=== PATIENT | male | born 1980 | race Caucasian/White ===

== ENCOUNTER 2017-09-08 23:03 | Inpatient (IN) | payer MEDICAID ==
[2017-09-08] MEDS ORDERED: Sodium Chloride 0.9% 1,000 ML IV ONE (23:23)
[2017-09-08] MEDS ORDERED: cefTRIAXone 1 GM in Sodium Chloride 0.9% 50 ML IV ONE (23:24)
--- NOTE | 2017-09-08 23:30 | ED Physician Chart ---
ED Chief Complaint/HPI - Patient Information Date Seen:: 09/08/17 Time Seen:: 23:00 Chief Complaint:: Leg Pain History of Present Illness:: onset x one week of intermittent bilateral leg pain, redness, and swelling; pt denies trauma, H/As, neck pain, C/P, SOB, Abd. Pain, A/N/V/D/C, fever, chills, or urinary s/s Allergies:: Allergies Allergy/AdvReac Type Severity Reaction Status Date / Time No Known Allergies Allergy Verified 09/08/17 23:19 Historian:: Patient, Family Member Review:: Nurse's Note Reviewed, Old Chart Reviewed, EMS run form Reviewed ED Review of Systems - Review of Systems General/Constitutional: No fever, No chills, No weight loss, No weakness, No diaphoresis, No edema, No loss of appetite Skin: No skin lesions, No rash, No bruising Head: No headache, No light-headedness Eyes: No loss of vision, No pain, No diplopia ENT: No earache, No nasal drainage, No sore throat, No tinnitus Neck: No neck pain, No swelling, No thyromegaly, No stiffness, No mass noted Cardio Vascular: No chest pain, No palpitations, No PND, No orthopnea, No edema Pulmonary: No SOB, No cough, No sputum, No wheezing GI: No nausea, No vomiting, No diarrhea, No pain, No melena, No hematochezia, No constipation, No hematemesis G/U: No dysuria, No frequency, No hematuria, No nacturia Musculoskeletal: Bone or joint pain, No back pain, Muscle pain Endocrine: No polyuria, No polydipsia Psychiatric: No prior psych history, No depression, No anxiety, No suicidal ideation, No homicidal ideation, No auditory hallucination, No visual hallucination Hematopoietic: No bruising, No lymphadenopathy Allergic/Immuno: No urticaria, No angioedema Neurological: No syncope, No focal symptoms, No weakness, No paresthesia, No headache, No seizure, No dizziness, No confusion, No vertigo ED Past Medical History - Past Medical History Obtainable: Yes Past Medical History: No significant medical hx Family History: None Social History: Non Smoker, No Alcohol, No Drug Use, Single, Homeless Surgical History: None Psychiatricy History: None Medication: Reviewed ED Physical Exam - Physical Examination General/Constitutional: Awake, Well-developed, well-nourished, Alert, No distress, GCS 15, Non-toxic appearing, Ambulatory Head: Atraumatic Eyes: Lids, conjuctiva normal, PERRL, EOMI Skin: Nl inspection, No rash, No skin lesions, No ecchymosis, Well hydrated, No lymphadenopathy ENMT: External ears, nose nl, TM canals nl, Nasal exam nl, Lips, teeth, gums nl , Oropharynx nl, Tonsils nl Neck: Nontender, Full ROM w/o pain, No JVD, No nuchal rigidity, No bruit, No mass, No stridor Other Neck comments:: supple; no meningeal signs; no cervical tenderness; no bruits Respiratory: Nl effort/Exclusion, Clear to Auscultation, No Wheeze/Rhonchi/Rales Cardio Vascular: RRR, No murmur, gallop, rubs, NL S1 S2, Carotid/Femoral/Distal pulses equal bilaterally GI: No tenderness/rebounding/guarding, No organomegaly, No hernia, Normal BS's, Nondistended, No mass/bruits, No McBurney tenderness Other GI comments:: no pulsatile masses : No CVA tenderness Extremities: No tenderness or effusion, Full ROM, normal strength in all extremities, No edema, Normal digits & nails Other Extremities comments:: + bilateral LE Cellulitis; no FBs; good NV functions Neuro/Psych: Alert/oriented, DTR's symmetric, Normal sensory exam, Normal motor strength, Judgement/insight normal, Mood normal, Normal gait, No focal deficits Misc: Normal back, No paraspinal tenderness ED Labs/Radiology/EKG Results - Lab Results Comments:: Na+: 128; WBC: 17.3 - Radiology Results Comments:: NAD - EKG Interpretations EKG Time:: 23:46 Rate & Rhythm: 99; NSR Comments:: WNL ED Septic Shock - . Is Septic Shock (SBP<90, OR Lactate>4 mmol\L) present?: No ED Reassessment (Disposition) - Reassessment Reassessment Condition:: Improved - Diagnosis Diagnosis:: Dx: Leg Pain; Cellulitis; Sepsis; Leukocytosis; Hyponatremia; Dehydration - Aftercare/Follow up Instructions Aftercare/Follow-Up Instructions:: Counseled pt regarding lab results/diagnosis & need follow up, Counseled pt & family regarding lab results/diagnosis & need follow up - Patient Disposition Discharge/Transfer:: Acute Care w/in this hosp Accepting Physician:: Dr. Lopez Time Called:: 29 Time Responded:: 00:30 Admitted to:: Med/Surg Spoke to:: Dr. Lopez Admitting Medical Physician:: Dr. Lopez Condition at Disposition:: Stable, Improved
[2017-09-09] LABS: % EOSINOPHILS 0.7 % (0.0-5.0); % LYMPHOCYTES 11.8 % (20.0-50.0); % MONOCYTES 8.1 % (2.0-10.0); % NEUTROPHILS 79.4 % (40.0-80.0); EOSINOPHILE ABSOLUTE 0.1 Th/cmm (0.1-0.4); HEMATOCRIT 42.4 % (41.0-60); HEMOGLOBIN 14.2 gm/dL (12-16); MEAN CORPUSCULAR HEMOGLOBIN 28.4 pg (26.0-30.0); MEAN CORPUSCULAR HGB CONC 33.4 pg (28.0-36.0); MEAN PLATELET VOLUME 7.8 fl; MONOCYTE ABSOLUTE 1.4 Th/cmm (0.3-1.0); NEUTROPHILE ABSOLUTE 13.8 Th/cmm (1.8-8.0); PLATELET COUNT 416 Th/cmm (150-400); RED BLOOD COUNT 4.99 Mil/cmm (4.30-5.70); RED CELL DISTRIBUTION WIDTH 12.3 % (11.5-20.0)
[2017-09-09 00:18] LABS: INR 0.98 (0.5-1.4); PROTHROMBIN TIME (TEST) 10.2 SECONDS (9.5-11.5); WHITE BLOOD COUNT 17.3 Th/cmm (4.8-10.8)
[2017-09-09 00:22] LABS: ALB/GLOB RATIO 1.4 (1.0-1.8); ALBUMIN 4.5 gm/dL (4.2-5.5); ALKALINE PHOSPHATASE 90 U/L (34-104); ANION GAP 12.4 (7.0-16.0); BILIRUBIN,TOTAL 0.8 mg/dL (0.3-1.0); BUN - UREA NITROGEN 18 mg/dL (7-25); CALCIUM SERUM 9.8 mg/dL (8.6-10.3); CARBON DIOXIDE 22.4 mEq/L (21.0-31.0); CHLORIDE 97 mEq/L (98-107); CREATININE - SERUM 0.8 mg/dL (0.7-1.3); CREATININE KINASE 123 U/L (30-223); GFR AFRICAN-AMERICAN > 60.0 ml/min (>90); GFR NON AFRICAN-AMERICAN > 60.0 ml/min; GLUCOSE 81 mg/dL (70-105); POTASSIUM SERUM 3.8 mEq/L (3.5-5.1); SGOT 17 U/L (13-39); SGPT/ALT 27 U/L (7-52); SODIUM SERUM 128 mEq/L (136-145); TOTAL PROTEIN,SERUM 7.8 gm/dL (6.0-8.3)
[2017-09-09 00:35] LABS: TROP I < 0.01 ng/mL (0.01-0.05)
[2017-09-09 08:06] LABS: URINE MICROSCOPIC INDICATED? YES; URINE SOURCE MIDSTREAM
[2017-09-09 08:22] LABS: URINE BILIRUBIN NEGATIVE (NEGATIVE); URINE BLOOD NEGATIVE (NEGATIVE); URINE GLUCOSE (UA) NEGATIVE (NEGATIVE); URINE KETONE 15 mg/dL (NEGATIVE); URINE LEUKOCYTE ESTERASE NEGATIVE (NEGATIVE); URINE NITRATE NEGATIVE (NEGATIVE); URINE PROTEIN NEGATIVE (NEGATIVE); URINE UROBILINOGEN 0.2 E.U./dL (0.2 - 1.0)
[2017-09-09 08:28] LABS: URINE CLARITY CLEAR (CLEAR); URINE COLOR YELLOW
[2017-09-09 08:33] LABS: URINE BACTERIA NONE SEEN /hpf (NONE SEEN); URINE EPITHELIAL CELLS RARE /lpf (FEW); URINE RBC NONE SEEN /hpf (0-5); URINE WBC 0-2 /hpf (0-5)
--- NOTE | 2017-09-09 09:32 | Diagnostic Imaging Report ---
Bilateral lower extremity Doppler venous ultrasound exam HISTORY: Pain/swelling Sonographic sector images were obtained through the deep venous systems of both legs. Associated Doppler data was obtained. Exam is somewhat limited due to generalized soft tissue swelling of the lower extremities. The exam demonstrates patency of the common femoral, superficial femoral, popliteal, and posterior tibial veins bilaterally. Specifically, no thrombus is seen. There are normal compressibility and augmentation responses. IMPRESSION: 1. Somewhat limited exam due to generalized soft tissue swelling 2. No definite evidence of deep vein thrombophlebitis
--- NOTE | 2017-09-09 10:30 | History and Physical ---
History of Present Illness - HPI Chief Complaint: Bilateral pain, redness and edema of both legs. HPI: Patient refer that last weekend he was at the hospital due to cellulites of both legs, he was discharge with PO antibiotics but did not worked and edema and redness of both legs increased. He came to ER for Evaluation and treatment. Vital Signs: Last Vital Signs Temp 97.3 F 09/09/17 07:55 Pulse 71 09/09/17 07:55 Resp 14 09/09/17 07:55 BP 118/70 09/09/17 07:55 Pulse Ox 98 09/09/17 00:35 Past Medical History Cardiovascular: Report: No Pertinent Hx Pulmonary: Report: No Pertinent Hx ENVIRONMENTAL ENGINEERING ASSISTANT: Report: No Pertinent Hx GI: Report: No Pertinent Hx Psych: Report: No Pertinent Hx Musculoskeletal: Report: No Pertinent Hx Rheumatologic: Report: No pertinent Hx Infectious Disease: Report: No Pertinent Hx Renal/: Report: No Pertinent Hx Endocrine: Report: No Pertinent Hx Dermatology: Report: No Pertinent Hx Family Medical History - Family Member Mother History Unknown: Yes Social History Smoke: 1 pack per day Alcohol: Occassional Drugs: None Lives: Homeless Domestic Violence: Negative - Medications Home Medications: Home Medication Medication Instructions Recorded Type Cephalexin [Cephalexin*] 500 mg PO QID 09/08/17 History Ibuprofen 600 mg PO TID PRN 09/08/17 History Sulfamethoxazole/Trimethoprim 1 tab PO BID 09/08/17 History [Bactrim Ds Tablet] - Allergies Allergies/Adverse Reactions: Allergies Allergy/AdvReac Type Severity Reaction Status Date / Time No Known Allergies Allergy Verified 09/08/17 23:19 Review of Systems - Review of Systems Constitutional: Report: No Significant Eyes: Report: No Significant ENT: Report: No Significant Respiratory: Report: No Significant Cardiovascular: Report: No Significant Gastrointestinal: Report: No Significant Genitourinary: Report: No Significant Musculoskeletal: Report: Other (Bitateral pain and redness of both legs. ) Neurological: Report: No Significant Physical Exam - Physical Exam HEENT: Report: Ears Nose Throat within normal limits Neck: Report: Within normal limits Cardiovascular Systems: Report: Regular, Rate and Rhythm Respiratory: Report: Breath Sounds are within normal limits Abdomen: Report: Non-tender to palpation Back: Report: Inspection of back is within normal limits. Extremities: Report: Pedal edema was noted on inspection, Other (pain at palpation and redness of both legs) Skin: Report: Warm, Other (Redness of both legs) Neuro/Psych: Report: Mood affect is within normal limits - Assessment Assessment: Patient is awake, alert, calm in no acute distres. Dx: Cellulites, Hyponatremia , Dehydration - Plan Plan: Patient in IV NS, pain control Vanco and zosyn will be added to treatment. Will continue to monitor.
[2017-09-09] MEDS ORDERED: Piperacillin Sodium/Tazobact 3.375 gm Vial IV ONE (12:49)
[2017-09-09] MEDS ORDERED: cefTRIAXone 1 GM in Sodium Chloride 0.9% 50 ML IV SCH (23:00)
[2017-09-10 07:02] LABS: % BASOPHILS 1.1 % (0.0-2.0); % EOSINOPHILS 3.5 % (0.0-5.0); % LYMPHOCYTES 20.1 % (20.0-50.0); % MONOCYTES 12.1 % (2.0-10.0); % NEUTROPHILS 63.2 % (40.0-80.0); BASOPHILE ABSOLUTE 0.1 Th/cumm (0-0.2); EOSINOPHILE ABSOLUTE 0.3 Th/cmm (0.1-0.4); HEMATOCRIT 38.1 % (41.0-60); HEMOGLOBIN 12.8 gm/dL (12-16); LYMPHOCYTE ABSOLUTE 1.9 Th/cmm (1.5-3.0); MEAN CELL VOLUME 85.5 fl (80-99); MEAN CORPUSCULAR HEMOGLOBIN 28.8 pg (26.0-30.0); MEAN CORPUSCULAR HGB CONC 33.7 pg (28.0-36.0); MEAN PLATELET VOLUME 8.1 fl; MONOCYTE ABSOLUTE 1.2 Th/cmm (0.3-1.0); NEUTROPHILE ABSOLUTE 6.1 Th/cmm (1.8-8.0); PLATELET COUNT 370 Th/cmm (150-400); RED BLOOD COUNT 4.45 Mil/cmm (4.30-5.70); RED CELL DISTRIBUTION WIDTH 12.1 % (11.5-20.0); WHITE BLOOD COUNT 9.6 Th/cmm (4.8-10.8)
[2017-09-10 07:23] LABS: ALB/GLOB RATIO 1.2 (1.0-1.8); ALBUMIN 3.6 gm/dL (4.2-5.5); ALKALINE PHOSPHATASE 65 U/L (34-104); ANION GAP 8.2 (7.0-16.0); BILIRUBIN,TOTAL 0.4 mg/dL (0.3-1.0); BUN - UREA NITROGEN 16 mg/dL (7-25); CALCIUM SERUM 9.2 mg/dL (8.6-10.3); CARBON DIOXIDE 25.9 mEq/L (21.0-31.0); CHLORIDE 104 mEq/L (98-107); CREATININE - SERUM 0.7 mg/dL (0.7-1.3); GFR AFRICAN-AMERICAN > 60.0 ml/min (>90); GFR NON AFRICAN-AMERICAN > 60.0 ml/min; GLUCOSE 108 mg/dL (70-105); POTASSIUM SERUM 4.1 mEq/L (3.5-5.1); SGOT 10 U/L (13-39); SGPT/ALT 17 U/L (7-52); SODIUM SERUM 134 mEq/L (136-145); TOTAL PROTEIN,SERUM 6.5 gm/dL (6.0-8.3)
--- NOTE | 2017-09-10 08:08 | General Progress Note ---
Subjective - Review of Systems Service Date: 09/10/17 Subjective: I have less pain. Objective - Results Result Diagrams: 09/10/17 06:20 09/10/17 06:20 Recent Labs: Laboratory Last Values WBC 9.6 Th/cmm (4.8-10.8) 09/10/17 06:20 RBC 4.45 Mil/cmm (4.30-5.70) 09/10/17 06:20 Hgb 12.8 gm/dL (12-16) 09/10/17 06:20 Hct 38.1 % (41.0-60) L 09/10/17 06:20 MCV 85.5 fl (80-99) 09/10/17 06:20 MCH 28.8 pg (26.0-30.0) 09/10/17 06:20 MCHC Differential 33.7 pg (28.0-36.0) 09/10/17 06:20 RDW 12.1 % (11.5-20.0) 09/10/17 06:20 Plt Count 370 Th/cmm (150-400) 09/10/17 06:20 MPV 8.1 fl 09/10/17 06:20 Neutrophils % 63.2 % (40.0-80.0) 09/10/17 06:20 Lymphocytes % 20.1 % (20.0-50.0) 09/10/17 06:20 Monocytes % 12.1 % (2.0-10.0) H 09/10/17 06:20 Eosinophils % 3.5 % (0.0-5.0) 09/10/17 06:20 Basophils % 1.1 % (0.0-2.0) 09/10/17 06:20 PT 10.2 SECONDS (9.5-11.5) 09/08/17 23:45 INR 0.98 (0.5-1.4) 09/08/17 23:45 PTT (Actin FS) 28.2 SECONDS (26.0-38.0) 09/08/17 23:45 Sodium 134 mEq/L (136-145) L 09/10/17 06:20 Potassium 4.1 mEq/L (3.5-5.1) 09/10/17 06:20 Chloride 104 mEq/L (98-107) 09/10/17 06:20 Carbon Dioxide 25.9 mEq/L (21.0-31.0) 09/10/17 06:20 Anion Gap 8.2 (7.0-16.0) 09/10/17 06:20 BUN 16 mg/dL (7-25) 09/10/17 06:20 Creatinine 0.7 mg/dL (0.7-1.3) 09/10/17 06:20 Est GFR ( Amer) > 60.0 ml/min (>90) 09/10/17 06:20 Est GFR (Non-Af Amer) > 60.0 ml/min 09/10/17 06:20 BUN/Creatinine Ratio 22.9 09/10/17 06:20 Glucose 108 mg/dL (70-105) H 09/10/17 06:20 POC Glucose 81 MG/DL (70 - 105) 09/09/17 18:06 Whole Bld Lactic Acid 1.36 mmol/L (0.60-1.99) 09/08/17 23:45 Calcium 9.2 mg/dL (8.6-10.3) 09/10/17 06:20 Total Bilirubin 0.4 mg/dL (0.3-1.0) 09/10/17 06:20 AST 10 U/L (13-39) L 09/10/17 06:20 ALT 17 U/L (7-52) 09/10/17 06:20 Alkaline Phosphatase 65 U/L (34-104) 09/10/17 06:20 Creatine Kinase 123 U/L (30-223) 09/08/17 23:45 Troponin I < 0.01 ng/mL (0.01-0.05) L 09/08/17 23:45 Total Protein 6.5 gm/dL (6.0-8.3) 09/10/17 06:20 Albumin 3.6 gm/dL (4.2-5.5) L 09/10/17 06:20 Globulin 2.9 gm/dL 09/10/17 06:20 Albumin/Globulin Ratio 1.2 (1.0-1.8) 09/10/17 06:20 Urine Source MIDSTREAM 09/08/17 00:00 Urine Color YELLOW 09/08/17 00:00 Urine Clarity CLEAR (CLEAR) 09/08/17 00:00 Urine pH 7.0 (4.6 - 8.0) 09/08/17 00:00 Ur Specific [place] 1.020 (1.005-1.030) 09/08/17 00:00 Urine Protein NEGATIVE mg/dL (NEGATIVE) 09/08/17 00:00 Urine Glucose (UA) NEGATIVE mg/dL (NEGATIVE) 09/08/17 00:00 Urine Ketones 15 mg/dL (NEGATIVE) H 09/08/17 00:00 Urine Blood NEGATIVE (NEGATIVE) 09/08/17 00:00 Urine Nitrate NEGATIVE (NEGATIVE) 09/08/17 00:00 Urine Bilirubin NEGATIVE (NEGATIVE) 09/08/17 00:00 Urine Urobilinogen 0.2 E.U./dL (0.2 - 1.0) 09/08/17 00:00 Ur Leukocyte Esterase NEGATIVE (NEGATIVE) 09/08/17 00:00 Urine RBC NONE SEEN /hpf (0-5) 09/08/17 00:00 Urine WBC 0-2 /hpf (0-5) 09/08/17 00:00 Ur Epithelial Cells RARE /lpf (FEW) 09/08/17 00:00 Urine Bacteria NONE SEEN /hpf (NONE SEEN) 09/08/17 00:00 - Physical Exam Vitals and I&O: Vital Signs Temp 97.8 F 09/10/17 04:00 Pulse 73 09/10/17 04:00 Resp 20 09/10/17 04:00 BP 110/62 09/10/17 04:00 Pulse Ox 97 09/10/17 04:00 Intake & Output 09/09/17 09/10/17 09/10/17 18:59 06:59 18:59 Intake Total 500 300 Balance 500 300 Weight (lbs) 79.379 kg Intake: Intake, IV Amount 100 300 Piperacillin Sodium/ 100 50 Tazobact 3.375 gm In Sodium Chloride 0.9% 50 ml @ 100 mls/hr IV Q6HR [facility] Rx#:[id number] Vancomycin HCl 1 gm In 250 Sodium Chloride 0.9% 250 ml @ 165 mls/hr IV Q24H [facility] Rx#:[id number] Oral 400 Other: # Voids 3 Active Medications: Current Medications Acetaminophen (Tylenol) 650 mg PO Q4H PRN PRN Reason: Pain or Fever >101 Stop: 11/08/17 00:44 Vancomycin HCl 1 gm/ Sodium (Chloride) 250 mls @ 165 mls/hr IV Q24H [facility] Stop: 11/08/17 10:44 Last Infusion: 09/10/17 05:21 Dose: Infused Piperacillin Sod/Tazobactam (Sod 3.375 gm/ Sodium Chloride) 50 mls @ 100 mls/ hr IV Q6HR [facility] Stop: 11/08/17 11:59 Last Admin: 09/10/17 05:17 Dose: 100 mls/hr General: Alert, Oriented x3, Cooperative, No acute distress HEENT: Atraumatic, PERRLA Neck: Supple Cardiovascular: Regular rate Lungs: Clear to auscultation Abdomen: Bowel sounds, Soft Extremities: Other (Redness of both legs improving, but still edema of right leg , left leg no edema. ) Neurological: Other (Unstable gait) Skin: Other (Redness of lower extremities) Psych/Mental Status: Mental status NL Assessment/Plan - Assessment Assessment: Patient is awake, alert, calm in no acute distres. Na improving. WBC normal. Dx: Cellulites, Hyponatremia, Dehydration - Plan Plan: Patient in IV NS, pain control Vanco and zosyn. Doppler US of right leg requested. Will continue to monitor.
[2017-09-10] MEDS ORDERED: Probiotic Screen MC PRN (15:51)
[2017-09-10] MEDS: Vancomycin HCl 1.5 GM in Sodium Chloride 0.9% 500 ML IV SCH (19:30)
[2017-09-11] MEDS: Vancomycin HCl 1.5 GM in Sodium Chloride 0.9% 500 ML IV SCH ×2 (01:02→09:51)
[2017-09-11 07:01] LABS: % BASOPHILS 1.4 % (0.0-2.0); % EOSINOPHILS 4.7 % (0.0-5.0); % LYMPHOCYTES 30.2 % (20.0-50.0); % MONOCYTES 11.9 % (2.0-10.0); % NEUTROPHILS 51.8 % (40.0-80.0); BASOPHILE ABSOLUTE 0.1 Th/cumm (0-0.2); EOSINOPHILE ABSOLUTE 0.3 Th/cmm (0.1-0.4); HEMATOCRIT 40.5 % (41.0-60); HEMOGLOBIN 13.5 gm/dL (12-16); LYMPHOCYTE ABSOLUTE 2.2 Th/cmm (1.5-3.0); MEAN CELL VOLUME 85.2 fl (80-99); MEAN CORPUSCULAR HEMOGLOBIN 28.3 pg (26.0-30.0); MEAN CORPUSCULAR HGB CONC 33.3 pg (28.0-36.0); MEAN PLATELET VOLUME 8.1 fl; MONOCYTE ABSOLUTE 0.9 Th/cmm (0.3-1.0); NEUTROPHILE ABSOLUTE 3.9 Th/cmm (1.8-8.0); PLATELET COUNT 378 Th/cmm (150-400); RED BLOOD COUNT 4.75 Mil/cmm (4.30-5.70); RED CELL DISTRIBUTION WIDTH 12.5 % (11.5-20.0); WHITE BLOOD COUNT 7.4 Th/cmm (4.8-10.8)
[2017-09-11 07:35] LABS: ALB/GLOB RATIO 1.3 (1.0-1.8); ALBUMIN 3.8 gm/dL (4.2-5.5); ALKALINE PHOSPHATASE 64 U/L (34-104); ANION GAP 8.9 (7.0-16.0); BILIRUBIN,TOTAL 0.4 mg/dL (0.3-1.0); BUN - UREA NITROGEN 11 mg/dL (7-25); CALCIUM SERUM 9.6 mg/dL (8.6-10.3); CARBON DIOXIDE 26.1 mEq/L (21.0-31.0); CHLORIDE 106 mEq/L (98-107); CREATININE - SERUM 0.6 mg/dL (0.7-1.3); GFR AFRICAN-AMERICAN > 60.0 ml/min (>90); GFR NON AFRICAN-AMERICAN > 60.0 ml/min; GLUCOSE 96 mg/dL (70-105); SGOT 12 U/L (13-39); SGPT/ALT 19 U/L (7-52); SODIUM SERUM 137 mEq/L (136-145); TOTAL PROTEIN,SERUM 6.8 gm/dL (6.0-8.3)
[2017-09-11] MEDS ORDERED: Lactobacillus Rhamnosus GG 15 Billion CFU CAP.SPRINK PO SCH (09:00)
--- NOTE | 2017-09-11 10:19 | Discharge Summary ---
General Discharge Summary - Discharge Summary Date of Admission: 09/08/17 Admitting Diagnosis: Cerllulites, Hyponatremia, Dehydration. Discharge Date: 09/11/17 Discharge Diagnosis: Cellulites improved, Hyponatremia resolved, Dehydration resolved. Laboratory Findings: Laboratory Results - last 24 hr 09/11/17 09/11/17 06:11 06:11 WBC 7.4 RBC 4.75 Hgb 13.5 Hct 40.5 L MCV 85.2 MCH 28.3 MCHC Differential 33.3 RDW 12.5 Plt Count 378 MPV 8.1 Neutrophils % 51.8 Lymphocytes % 30.2 Monocytes % 11.9 H Eosinophils % 4.7 Basophils % 1.4 Sodium 137 Potassium 4.0 Chloride 106 Carbon Dioxide 26.1 Anion Gap 8.9 BUN 11 Creatinine 0.6 L Est GFR ( Amer) > 60.0 Est GFR (Non-Af Amer) > 60.0 BUN/Creatinine Ratio 18.3 Glucose 96 Calcium 9.6 Total Bilirubin 0.4 AST 12 L ALT 19 Alkaline Phosphatase 64 Total Protein 6.8 Albumin 3.8 L Globulin 3.0 Albumin/Globulin Ratio 1.3 Hospital Course: Patient responded to AB, edema of leg improved, redness improved, US shows no DVT. Treatment: Nanci Quiroz, pain management. Disposition: PT DISCHARGED HOME Home Medications: Home Medication Medication Instructions Recorded Type Cephalexin [Cephalexin*] 500 mg PO QID 09/08/17 History Ibuprofen 600 mg PO TID PRN 09/08/17 History Sulfamethoxazole/Trimethoprim 1 tab PO BID 09/08/17 History [Bactrim Ds Tablet] Inpatient Medications: Current Medications Acetaminophen (Tylenol) 650 mg PO Q4H PRN PRN Reason: Pain or Fever >101 Stop: 11/08/17 00:44 Last Admin: 09/10/17 11:01 Dose: 650 mg Piperacillin Sod/Tazobactam (Sod 3.375 gm/ Sodium Chloride) 50 mls @ 100 mls/ hr IV Q6HR [facility] Stop: 11/08/17 11:59 Last Infusion: 09/11/17 06:43 Dose: Infused Vancomycin HCl 1.5 gm/ Sodium (Chloride) 500 mls @ 250 mls/hr IV Q8H [facility] Stop: 11/09/17 17:59 Last Admin: 09/11/17 09:51 Dose: 250 mls/hr Lactobacillus Rhamnosus (Culturelle 15b) 1 each PO DAILY [facility] Stop: 11/10/17 08:59 Last Admin: 09/11/17 09:51 Dose: 1 each Miscellaneous (Vancomycin Iv Per Pharmacy) 1 ea [facility] PRN PRN PRN Reason: VANCOMYCIN IV PER RX Stop: 11/09/17 11:39 Miscellaneous (Probiotic Screen) 1 ea [facility] PRN PRN PRN Reason: PROTOCOL Stop: 11/09/17 15:50 Activity: As Tolerated Discharge Diet: Regular Consults and Follow-Up: NO,PCP PER PATIENT [Other] not on staff,PCP is [Primary Care Provider] - Consulting Speciality: Other (PCP)
== END 2017-09-11 17:15 | disposition home or self-care (01) | DRG 720 ==
LOC: ER 23:03 → MSI 09-09 00:40
PROVIDERS: ADMIT General Practice; ATTEND General Practice
DX: A41.9 Sepsis, unspecified organism (principal); E87.1 Hypo-osmolality and hyponatremia; L03.116 Cellulitis of left lower limb; L03.115 Cellulitis of right lower limb; E86.0 Dehydration
CPT/HCPCS: 36415-UA; 80053-TC; 80202-TC; 81001-TC; 82550-TC; 82948-90; 83605; 84484-TC; 85025-TC; 85610-TC; 85730-TC; 93005; 93970-TC-50; J0696; J2543; J3370; J7030; J7040; Z7610